=== PATIENT | male | born 1980 | race Caucasian/White ===

== ENCOUNTER → 2020-07-04 | Outpatient (CLI) | payer BC | END | disposition home or self-care (01) | LOC: LABWHC1 14:34 | PROVIDERS: ATTEND Family Medicine | DX: Z20.828 Contact with and (suspected) exposure to other viral communicable diseases (principal) | CPT/HCPCS: U0003; C9803 ==

== ENCOUNTER 2021-04-28 18:14 | Emergency (ER) | payer BC ==
[2021-04-28 18:23] VITALS: TEMP 98
[2021-04-28 18:24] LABS: Glucose,Whole Blood 113 mg/dL (75-99)
--- NOTE | 2021-04-28 18:41 | ED ---
General Adult HPI - General Chief complaint: Neuro Symptoms/Deficit Stated complaint: Weakness, not feeling right, memory loss Time Seen by Provider: 04/28/21 18:26 Source: patient Mode of arrival: ambulatory Limitations: no limitations - History of Present Illness Initial comments: Dictation was produced using [employer] dictation software. please excuse any grammatical, word or spelling errors. Chief Complaint: 41-year-old male presents emergency department for mental status changes. History of Present Illness: 41-year-old value presents to the emergency department today for neurologic complaint. Today he was playing was finally revealed games with his family friend. Shortly after he started to have an episode of headache. States that headache resolved. Described it as a sharp pain to the bitemporal areas. States that he has been feeling off and emotional. is at bedside states that he showed some signs of short-term memory loss. Patient has any numbness and paresthesias to the arms or legs. He has no other medical complaints. The ROS documented in this emergency department record has been reviewed and confirmed by me. Those systems with pertinent positive or negative responses have been documented in the HPI. All other systems are other negative and/or noncontributory. PHYSICAL EXAM: General Impression: Alert and oriented x3, not in acute distress HEENT: Normocephalic atraumatic, extra-ocular movements intact, pupils equal and reactive to light bilaterally, mucous membranes moist. Cardiovascular: Heart regular rate and rhythm Chest: Able to complete full sentences, no retractions, no tachypnea Abdomen: abdomen soft, non-tender, non-distended, no organomegaly Musculoskeletal: Pulses present and equal in all extremities, no peripheral edema Motor: no focal deficits noted Neurological: CN II-XII grossly intact, no focal motor or sensory deficits noted Skin: Intact with no visualized rashes Psych: Normal affect and mood ED course: 41-year-old male presents with mental status changes. Vital signs upon arrival are within acceptable limits. Patient's well-appearing at bedside. Neurologic exam is completely benign.Computed tomography scan of the brain shows no acute processes. Patient related bedside at 7:25 PM found to be in stable medical condition. Patient has no high-risk features. He is well- appearing at bedside. Patient told to follow up his primary care physician. - Related Data Home Medications Medication Instructions Recorded Confirmed Ibuprofen [Motrin] 600 mg PO DIRECTED PRN 09/28/16 09/28/16 Previous Rx's Medication Instructions Recorded Dicyclomine [Bentyl] 10 mg PO QID #30 capsule 09/28/16 Allergies Allergy/AdvReac Type Severity Reaction Status Date / Time No Known Allergies Allergy Verified 04/28/21 18:23 Review of Systems ROS Statement: Those systems with pertinent positive or pertinent negative responses have been documented in the HPI. ROS Other: All systems not noted in ROS Statement are negative. Past Medical History Past Medical History: Asthma Additional Past Medical History / Comment(s): bronchitis History of Any Multi-Drug Resistant Organisms: None Reported Past Surgical History: No Surgical Hx Reported Past Psychological History: Anxiety Smoking Status: Never smoker Past Alcohol Use History: None Reported Past Drug Use History: None Reported General Exam Limitations: no limitations Course Vital Signs 04/28/21 18:19 Temperature 98.0 F Pulse Rate 89 Respiratory 18 Rate Blood Pressure 165/122 O2 Sat by Pulse 98 Oximetry Medical Decision Making - Lab Data Lab Results 04/28/21 Range/Units 18:22 POC Glucose (mg/dL) 113 H (75-99) mg/dL POC [employer] Dawna Mendiola Disposition Clinical Impression: Mental status alteration Disposition: HOME SELF-CARE Condition: Good Instructions (If sedation given, give patient instructions): Altered Mental Status (ED) Is patient prescribed a controlled substance at d/c from ED?: No Referrals: Bri Seals MD [STAFF PHYSICIAN] - 1-2 days
--- NOTE | 2021-04-28 19:11 | CT ---
EXAMINATION TYPE: CT brain wo con DATE OF EXAM: 04/28/2021 COMPARISON: None HISTORY: Altered mental status. CT DLP: 1166.4 mGycm Automated exposure control for dose reduction was used. Ventricles and sulci appear normal. There is no mass effect nor midline shift. There is no sign of in tracranial hemorrhage. Calvarium is intact. Skull base is intact. There is normal aeration of the mas toid sinuses. IMPRESSION: Normal unenhanced head CT scan.
[2021-04-28 19:56] VITALS: BP 145/98; PULSE 79; RESP 16
== END 2021-04-28 19:43 | disposition home or self-care (01) ==
LOC: EC 18:14
DX: R41.82 Altered mental status, unspecified (principal); J45.909 Unspecified asthma, uncomplicated
CPT/HCPCS: 36415; 70450; 99285

== ENCOUNTER 2021-10-22 23:30 | Emergency (ER) | payer BC ==
--- NOTE | 2021-10-23 00:03 | XR ---
EXAMINATION TYPE: XR chest 2V DATE OF EXAM: 10/22/2021 COMPARISON: 12/12/2013 HISTORY: Chest pain TECHNIQUE: 2 views FINDINGS: Heart and mediastinum are normal. Lungs are clear. Diaphragm is normal. Bony thorax is inta ct. IMPRESSION: Normal chest. No change.
--- NOTE | 2021-10-23 01:49 | ED ---
Recheck HPI - General Chief Complaint: Recheck/Abnormal Lab/Rx Stated Complaint: Left side pain Time Seen by Provider: 10/22/21 23:36 Source: patient, RN notes reviewed Mode of arrival: ambulatory Limitations: no limitations - History of Present Illness Initial Comments: Patient is a 41-year-old male that presents to the emergency department complaining of mild upper respiratory tract symptoms. He notes that he had a coughing fit and which he noted after his left-sided ribs hurt. Patient was otherwise well-appearing in no apparent distress. He notes he came to the emergency room to get evaluated for left-sided rib pain and possible Covid. Patient denied any shortness of breath headache nausea vomiting diarrhea constipation fever fatigue chills. - Related Data Home Medications Medication Instructions Recorded Confirmed Ibuprofen [Motrin] 600 mg PO DIRECTED PRN 09/28/16 09/28/16 Previous Rx's Medication Instructions Recorded Dicyclomine [Bentyl] 10 mg PO QID #30 capsule 09/28/16 Allergies Allergy/AdvReac Type Severity Reaction Status Date / Time No Known Allergies Allergy Verified 10/22/21 23:31 Review of Systems ROS Statement: Those systems with pertinent positive or pertinent negative responses have been documented in the HPI. ROS Other: All systems not noted in ROS Statement are negative. Past Medical History Past Medical History: Asthma Additional Past Medical History / Comment(s): bronchitis History of Any Multi-Drug Resistant Organisms: None Reported Past Surgical History: No Surgical Hx Reported Past Psychological History: Anxiety Smoking Status: Never smoker Past Alcohol Use History: Rare Past Drug Use History: None Reported General Exam Limitations: no limitations General appearance: alert, in no apparent distress, obese (Morbidly) Head exam: Present: atraumatic, normocephalic, normal inspection Eye exam: Present: normal appearance, PERRL, EOMI. Absent: scleral icterus, conjunctival injection, periorbital swelling ENT exam: Present: normal exam, mucous membranes moist Neck exam: Present: normal inspection Respiratory exam: Present: normal lung sounds bilaterally. Absent: respiratory distress, wheezes, rales, rhonchi, stridor Cardiovascular Exam: Present: regular rate, normal rhythm, normal heart sounds. Absent: systolic murmur, diastolic murmur, rubs, gallop, clicks Extremities exam: Present: normal inspection, full ROM, normal capillary refill. Absent: tenderness, pedal edema, joint swelling, calf tenderness Neurological exam: Present: alert, oriented X3 Psychiatric exam: Present: normal affect, normal mood Skin exam: Present: warm, dry, intact, normal color. Absent: rash Course Vital Signs 10/22/21 23:31 Temperature 98.5 F Pulse Rate 102 H Respiratory 20 Rate Blood Pressure 167/112 O2 Sat by Pulse 97 Oximetry Medical Decision Making - Medical Decision Making 1-year-old male with left-sided rib pain after coughing and upper respiratory tract symptoms. Covid test, chest x-ray, EKG ordered. Covid test negative. Chest x-ray shows normal chest no acute process. EKG is within normal limits. Case discussed with Dr. Marroquin, patient discharge home. - Lab Data Lab Results 10/23/21 Range/Units 01:10 Coronavirus (PCR) Not Detected (Not Detectd) - EKG Data -: EKG Interpreted by Me EKG shows normal: sinus rhythm Rate: normal EKG Comments: Ventricular rate 85 bpm, ME interval 146 ms, QRS duration 94 ms, QTC 430 ms, PRT axes 44/35/32. Normal sinus rhythm, possible anterior infarct age undetermined, abnormal ECG. - Radiology Data Radiology results: report reviewed, image reviewed Chest x-ray: Normal chest. No change. Disposition Clinical Impression: Costochondritis Disposition: HOME SELF-CARE Condition: Stable Instructions (If sedation given, give patient instructions): Chest Wall Pain (ED) Additional Instructions: Please return to the Emergency Department if symptoms worsen or any other concerns. Follow-up with primary care 1-2 days. Take Tylenol Motrin alternating of 3 hours for aches pains and fevers. Is patient prescribed a controlled substance at d/c from ED?: No Referrals: None,Stated [Primary Care Provider] - 1-2 days Time of Disposition: 01:49
[2021-10-23 02:26] VITALS: BP 158/103; PULSE 95; RESP 18; TEMP 97.8
== END 2021-10-23 02:19 | disposition home or self-care (01) ==
LOC: EC 23:30
DX: M94.0 Chondrocostal junction syndrome [Tietze] (principal); J45.909 Unspecified asthma, uncomplicated; F41.9 Anxiety disorder, unspecified; Z20.822 Contact with and (suspected) exposure to COVID-19
CPT/HCPCS: 71046; 87635; 93005; 99285

== ENCOUNTER → 2023-03-22 | Outpatient (CLI) | payer BC ==
--- NOTE | 2023-03-22 13:19 | XR ---
EXAMINATION TYPE: XR foot complete RT DATE OF EXAM: 03/22/2023 COMPARISON: NONE HISTORY: M 79.671 TECHNIQUE: Frontal, lateral and oblique images of the right foot are obtained. FINDINGS: There is no acute fracture/dislocation evident. The joint spaces appear within normal tucker its. Small posterior calcaneal enthesophyte. The overlying soft tissue appears unremarkable. Inciden rosa os peroneum. IMPRESSION: 1. There is no acute fracture or dislocation seen. 2. Incidental os peroneum which may represent patient's reported palpable abnormality.
== END | disposition home or self-care (01) ==
LOC: RADXRMAIN 12:52
PROVIDERS: ATTEND Family Medicine
DX: M79.671 Pain in right foot (principal)

== ENCOUNTER 2025-01-05 06:55 | Observation (INO) | payer BC ==
[2025-01-05 07:03] VITALS: TEMP 97.5
[2025-01-05] MEDS: SODIUM CHLORIDE 0.9% 1,000 ML IV STA (07:48)
[2025-01-05 07:51] LABS: Basophils % (A) 1 %; Eosinophils # (A) 0.2 k/uL (0-0.7); Eosinophils % (A) 3 %; HCT 48.4 % (39.0-53.0); HGB 16.3 gm/dL (13.0-17.5); Lymphocytes # (A) 1.7 k/uL (1.0-4.8); Lymphocytes % (A) 22 %; MCHC 33.6 g/dL (31.0-37.0); MCV 95.2 fL (80.0-100.0); Mean Platelet Volume 7.1; Monocytes # (A) 0.5 k/uL (0-1.0); Monocytes % (A) 6 %; Neutrophils # (A) 5.4 k/uL (1.3-7.7); Neutrophils % (A) 68 %; Platelet Count 227 k/uL (150-450); RBC 5.08 m/uL (4.30-5.90); RDW 12.3 % (11.5-15.5); WBC 7.9 k/uL (3.8-10.6)
[2025-01-05 08:07] LABS: ALT 53 U/L (4-49); AST 31 U/L (17-59); African American GFR (CKD) >90 (>60 ml/min/1.73 sqM); Albumin 4.4 g/dL (3.5-5.0); Alkaline Phosphatase 72 U/L (38-126); Anion Gap 9 mmol/L; Blood Urea Nitrogen 15 mg/dL (9-20); Calcium 9.9 mg/dL (8.4-10.2); Carbon Dioxide 27 mmol/L (22-30); Chloride 103 mmol/L (98-107); Glucose 98 mg/dL (74-99); Lipase 82 U/L (23-300); Non-African American GFR(CKD) >90 (>60 ml/min/1.73 sqM); Potassium 4.2 mmol/L (3.5-5.1); Sodium 139 mmol/L (137-145); Total Bilirubin 0.9 mg/dL (0.2-1.3); Total Protein 7.2 g/dL (6.3-8.2)
[2025-01-05 08:10] LABS: INR 0.9 (<1.2); Partial Thromboplastin Time 27.5 sec (22.0-30.0); Prothrombin Time 10.2 sec (10.0-12.5)
--- NOTE | 2025-01-05 08:15 | XR ---
EXAMINATION TYPE: XR chest 2V DATE OF EXAM: 01/05/2025 8:09 AM COMPARISON: 02/13/2022 CLINICAL INDICATION: Male, 44 years old with history of Chest Pain, TECHNIQUE: XR chest 2V view(s) obtained. FINDINGS: The heart size is normal. The pulmonary vasculature is normal. The lungs are clear. IMPRESSION: 1. No acute pulmonary process. [facility], , 01/05/2025 8:13 AM
--- NOTE | 2025-01-05 08:43 | US ---
EXAMINATION TYPE: US gallbladder DATE OF EXAM: 01/05/2025 COMPARISON: NONE CLINICAL INDICATION: Male, 44 years old with history of pain; TECHNIQUE: Grayscale and color Doppler imaging of the right upper quadrant was performed. FINDINGS: EXAM MEASUREMENTS: Liver Length: 14.6 cm Gallbladder Wall: 0.2 cm CBD: 0.4 cm Right Kidney: 7.2 x 3.3 x 4.0 cm STOGY MAKER NOTES: Pancreas: Tail obscured by overlying bowel gas Liver: Heterogenous, ? areas of focal fatty sparring Gallbladder: wnl Evidence for sonographic Corado's sign: No CBD: wnl Right Kidney: Horseshoe kidney, otherwise WNL IMPRESSION: 1. No acute ultrasound abnormality right upper quadrant 2. Note is made of a horseshoe kidney. 3. Liver echotexture is somewhat heterogenous in the areas of focal fatty sparing [facility], , 01/05/2025 8:41 AM
--- NOTE | 2025-01-05 08:49 | ED ---
Chest Pain HPI - General Chief Complaint: Chest Pain Stated Complaint: Chest Pain Time Seen by Provider: 01/05/25 07:00 Source: patient, RN notes reviewed Mode of arrival: ambulatory Limitations: no limitations - History of Present Illness Initial Comments: 44-year-old male presents emergency department complaint of chest pain. Patient states that he has been having some on and off symptoms but worsened and more persistent today states he became diaphoretic. Patient states he feels like something moves up into his chest denies feeling any shortness of breath today. He states he normally has had reflux in the past but this is not reflux. Patient denies any prior cardiac disease no history of hypertension hyperlipidemia. Patient states he is on Wegovy but has been on Wegovy for a while. Patient has not fevers or chills no leg pain leg swelling no history of DVT or PE. - Related Data Home Medications Medication Instructions Recorded Confirmed Fexofenadine/Pseudoephedrine 1 tab PO DAILY PRN 02/13/22 02/13/22 [Faith-D 12 Hour Tablet] Ibuprofen [Motrin Ib] 1,000 mg PO Q8H PRN 02/13/22 02/13/22 Previous Rx's Medication Instructions Recorded Acetaminophen [Tylenol] 500 mg PO Q4-6H PRN #24 tab 02/13/22 Cyclobenzaprine [Flexeril] 10 mg PO TID PRN #20 tab 02/13/22 Naproxen [Naprosyn] 500 mg PO Q12HR #24 tab 02/13/22 Allergies Allergy/AdvReac Type Severity Reaction Status Date / Time No Known Allergies Allergy Verified 01/05/25 07:03 Review of Systems ROS Statement: Those systems with pertinent positive or pertinent negative responses have been documented in the HPI. ROS Other: All systems not noted in ROS Statement are negative. EKG Findings - EKG Comments: EKG Findings:: EKG performed at 7: 10 sinus rhythm with a rate of 67 AK 163 QRS 99 QT/QTc 367/382 noted S1 Q 3, T3 - EKG Results: EKG: interpreted by MIKO Past Medical History Past Medical History: Asthma Additional Past Medical History / Comment(s): bronchitis History of Any Multi-Drug Resistant Organisms: None Reported Past Surgical History: No Surgical Hx Reported Past Psychological History: Anxiety Smoking Status: Never smoker Past Alcohol Use History: Occasional Past Drug Use History: None Reported General Exam Limitations: no limitations General appearance: alert, in no apparent distress Head exam: Present: atraumatic, normocephalic, normal inspection Eye exam: Present: normal appearance, PERRL, EOMI. Absent: scleral icterus, conjunctival injection, periorbital swelling ENT exam: Present: normal exam, normal oropharynx, mucous membranes moist Neck exam: Present: normal inspection, full ROM. Absent: tenderness, meningismus, lymphadenopathy Respiratory exam: Present: normal lung sounds bilaterally. Absent: respiratory distress, wheezes, rales, rhonchi, stridor Cardiovascular Exam: Present: regular rate, normal rhythm, normal heart sounds. Absent: systolic murmur, diastolic murmur, rubs, gallop, clicks GI/Abdominal exam: Present: soft, normal bowel sounds. Absent: distended, tenderness, guarding, rebound, rigid Extremities exam: Absent: pedal edema, calf tenderness Back exam: Absent: CVA tenderness (R), CVA tenderness (L) Neurological exam: Present: alert Course Vital Signs 01/05/25 01/05/25 01/05/25 07:00 07:42 08:45 Temperature 97.5 F L Pulse Rate 78 71 80 Respiratory 18 16 19 Rate Blood Pressure 106/69 121/88 125/80 O2 Sat by Pulse 100 100 99 Oximetry Chest Pain MDM - MDM Was pt. sent in by a medical professional or institution (JINNY Arriaza, [employer], urgent care, hospital, or [facility]...) When possible be specific @ -No Did you speak to anyone other than the patient for history (EMS, parent, family, police, friend...)? What history was obtained from this source @ -No Did you review nursing and triage notes (agree or disagree)? Why? @ -I reviewed and agree with nursing and triage notes Were old charts reviewed (outside hosp., previous admission, EMS record, old EKG, old radiological studies, urgent care reports/EKG's, [facility] records)? Report findings @ -No old charts were reviewed Differential Diagnosis (chest pain, altered mental status, abdominal pain women, abdominal pain men, vaginal bleeding, weakness, fever, dyspnea, syncope, headache, dizziness, GI bleed, back pain, seizure, CVA, palpatations, mental health, musculoskeletal)? @ -Differential Chest Pain: Stable Angina, Unstable Angina, STEMI, NSTEMI Aortic Dissection, Pneumothorax, Musculoskeletal, Esophageal Spasm GERD, Cholecystitis, Pancreatitis, Zoster, this is not meant to be an all-inclusive list. EKG interpreted by me (3pts min.). @ -As above X-rays interpreted by me (1pt min.). @ -Chest x-ray shows no acute cardiopulmonary process CT interpreted by me (1pt min.). @ -None done U/S interpreted by me (1pt. min.). @ -Ultra sound gallbladder negative for acute process no evidence of cholelith iasis, horseshoe kidney noted What testing was considered but not performed or refused? (CT, X-rays, U/S, labs)? Why? @ -None What meds were considered but not given or refused? Why? @ -None Did you discuss the management of the patient with other professionals (professionals i.e. , PA, [employer], lab, RT, psych nurse, psych social worker, refinery process engineer, teacher, pharmaceutical officer, case technician)? Give summary @ -EMH for admission Was smoking cessation discussed for >3mins.? @ -No Was critical care preformed (if so, how long)? @ -No Were there social determinants of health that impacted care today? How? (Homelessness, low income, unemployed, alcoholism, drug addiction, transportation, low edu. Level, literacy, decrease access to med. care, long term, rehab)? @ -No Was there de-escalation of care discussed even if they declined (Discuss DNR or withdrawal of care, Hospice)? DNR status @ -No What co-morbidities impacted this encounter? (DM, HTN, Smoking, COPD, CAD, Cancer, CVA, ARF, Chemo, Hep., AIDS, mental health diagnosis, sleep apnea, morbid obesity)? @ -None Was patient admitted / discharged? Hospital course, mention meds given and route, prescriptions, significant lab abnormalities, going to OR and other pertinent info. @ -Admitted patient presented for chest pain with concerning ACS features. Patient initial troponin EKG not reveal any significant findings. Patient admitted for cardiac rule out Undiagnosed new problem with uncertain prognosis? @ -No Drug Therapy requiring intensive monitoring for toxicity (Heparin, Nitro, Insulin, Cardizem)? @ -No Were any procedures done? @ -No Diagnosis/symptom? @ -Chest pain Acute, or Chronic, or Acute on Chronic? @ -Acute Uncomplicated (without systemic symptoms) or Complicated (systemic symptoms)? @ -Complicated Side effects of treatment? @ -No Exacerbation, Progression, or Severe Exacerbation? @ -No Poses a threat to life or bodily function? How? (Chest pain, [place], [place], pneumonia, PE, COPD, DKA, ARF, appy, cholecystitis, CVA, Diverticulitis, Homicidal, Suicidal, threat to staff... and all critical care pts) @ -Yes possible ACS causing risk of cardiac function Disposition Clinical Impression: Chest pain Disposition: ADMITTED IP TO THIS HOSP Condition: Fair Referrals: Olive Hernandez MD [Primary Care Provider] - 1-2 days Time of Disposition: 09:13
[2025-01-05] MEDS ORDERED: NITROGLYCERIN SL TABS 0.4 MG TAB SUBLINGUAL PRN (09:13)
[2025-01-05] MEDS: ASPIRIN 81 MG PO STA (10:02)
--- NOTE | 2025-01-05 11:34 | CA ---
Transthoracic Echo Report Name: Pa Gurrola Age: 44 Gender: M : 1980 Exam Date: 01/05/2025 10:19 Exam Location: [place] [facility] Ht (in): 69 Wt (lb): 225 Ordering Physician: Nabeel Sparks Attending/Referring Phys: Gerent[employer] Physiotherapist Anisha Phillips RDCS Procedure CPT: Indications: Chest Pain Cardiac Hx: Technical Quality: Fair Contrast 1: Definity Total Dose (mL): 2 Contrast 2: Total Dose (mL): MEASUREMENTS (Male / Female) Normal Values 2D ECHO LV Diastolic Diameter PLAX 4.2 cm 4.2 - 5.9 / 3.9 - 5.3 cm LV Systolic Diameter PLAX 2.9 cm IVS Diastolic Thickness 1.2 cm 0.6 - 1.0 / 0.6 - 0.9 cm LVPW Diastolic Thickness 1.2 cm 0.6 - 1.0 / 0.6 - 0.9 cm LV Relative Wall Thickness 0.6 RV Internal Dim ED PLAX 3.5 cm LA Systolic Diameter LX 3.6 cm 3.0 - 4.0 / 2.7 - 3.8 cm M-MODE Aortic Root Diameter MM 3.4 cm DOPPLER AV Peak Velocity 128.4 cm/s AV Peak Gradient 6.6 mmHg Mitral E Point Velocity 84.6 cm/s Mitral A Point Velocity 51.2 cm/s Mitral E to A Ratio 1.7 MV Deceleration Time 158.6 ms MV E' Velocity 9.1 cm/s Mitral E to MV E' Ratio 9.3 FINDINGS Left Ventricle Left ventricular ejection fraction is estimated at 55-60 %. Left ventricular cavity size normal. Mildly increased septal wall thickness. No obvious regional wall motion abnormalities. Right Ventricle Mild right ventricular dilatation. Unable to estimate the right ventricular systolic pressure. Right Atrium Normal right atrial size. No right atrial thrombus or mass seen. Left Atrium Normal left atrial size. No left atrial thrombus or mass present. Mitral Valve Structurally normal mitral valve. No mitral stenosis, regurgitation or prolapse. Aortic Valve Bicuspid aortic valve. Trace aortic regurgitation. No aortic stenosis. Tricuspid Valve Structurally normal tricuspid valve. No tricuspid stenosis, regurgitation or prolapse. Pulmonic Valve Structurally normal pulmonic valve. No pulmonic regurgitation. Pericardium No pericardial effusion. Aorta Normal size aortic root and proximal ascending aorta. CONCLUSIONS Left ventricular ejection fraction is estimated at 55-60 %. No obvious regional wall motion abnormalities. Bicuspid aortic valve. Mild right ventricular dilatation. Previewed by: Dr Phong Mendoza (Electronically Signed) Final Date: 05 January 2025 11:34
--- NOTE | 2025-01-05 11:35 | P.CRDCN ---
History of Present Illness History of present illness: HISTORY OF PRESENT ILLNESS: This is a 44-year-old male with a past medical history significant for asthma and obesity on Wegovy. Patient does not follow with a agricultural equipment operator. We have been asked to see the patient in consultation for chest pain. Patient examined at the bedside in the emergency room. Patient states for the past month he has been having chest discomfort. He states that it feels like " an air bubble that blocks my airway". He states that he tries to burp and when he is able to burp his chest pain will usually go away. He states that this morning he was driving to work and had that same sensation although he had multiple episodes of it so he became concerned and came to the emergency room. Patient states the pain is not exertionally related. He states yesterday he was breaking up ice and exerting himself without any discomfort. Patient is on Wegovy secondary to obesity. He states that his symptoms of chest pain and feeling like he has to burp do not seem to coincide to when he started Wegovy. He denies any known cardiac history. He states his dad has a pacemaker and his younger brother has diabetes. He is a non-smoker. He denies any drug use including marijuana. He reports rare alcohol use. 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 DIAGNOSTICS: - EKG reveals sinus mechanism with T wave versions in lead III. - Chest xray negative for acute process - Laboratory data: WBC 7.9. Hemoglobin 16.3. Platelet count 227. D-dimer 0.59. Sodium 139. Potassium 4.2. BUN 15. Creatinine 0.98. Magnesium 2.0. Troponin negative x 1. - Current home cardiac medications include none - No previous echocardiogram, stress test, or cardiac catheterization available in EMR for review REVIEW OF SYSTEMS: At the time of my exam: CONSTITUTIONAL: Denies fever or chills. HEENT: Denies blurred vision, vision changes, or eye pain. Denies hemoptysis CARDIOVASCULAR: Denies chest pain. Denies orthopnea. Denies PND. Denies palpitations RESPIRATORY: Denies shortness of breath. GASTROINTESTINAL: Denies abdominal pain. Denies nausea or vomiting. HEMATOLOGIC: Denies bleeding disorders. GENITOURINARY: Denies any blood in urine. SKIN: Denies pruitis. Denies rash. PHYSICAL EXAM: VITAL SIGNS: Reviewed. GENERAL: Well-developed in no acute distress. HEENT: Head is normocephalic. Pupils are equal, round. Sclerae anicteric. Mucous membranes of the mouth are moist. Neck supple. No JVD or thyromegaly LUNGS: Respirations even and unlabored. Lungs essentially clear to auscultation bilaterally. HEART: Regular rate and rhythm. S1 and S2 heard. ABDOMEN: Soft. Nondistended. Nontender. EXTREMITIES: Normal range of motion. No clubbing or cyanosis. Peripheral pulses intact. No lower extremity edema NEUROLOGIC: Awake and alert. Oriented x 3. ASSESSMENT: Chest pain, troponin negative x 1 Obesity: BMI 33.2 History of asthma PLAN: Obtain 2D echo to assess cardiac structure and function Decrease aspirin to 81 mg daily Check lipid panel, hemoglobin A1c, TSH, and BNP Trend troponins. If second troponin is negative, patient will undergo stress echocardiogram today If stress echocardiogram is negative, patient may be discharged home from a [facility] standpoint Further recommendations pending patient course Nurse practitioner note has been reviewed by physician. Signing provider agrees with the documented findings, assessment, and plan of care documented by HAT MARKER as a scribe. Past Medical History Past Medical History: Asthma Additional Past Medical History / Comment(s): bronchitis History of Any Multi-Drug Resistant Organisms: None Reported Past Surgical History: No Surgical Hx Reported Past Psychological History: Anxiety Smoking Status: Never smoker Past Alcohol Use History: Occasional Past Drug Use History: None Reported Medications and Allergies Home Medications Medication Instructions Recorded Confirmed Type Semaglutide [Wegovy] 2.4 mg SQ CASTRO 01/05/25 01/05/25 History Allergies Allergy/AdvReac Type Severity Reaction Status Date / Time No Known Allergies Allergy Verified 01/05/25 10:10 Physical Exam Vitals: Vital Signs Temp Pulse Resp BP Pulse Ox 01/05/25 08:45 80 19 125/80 99 01/05/25 07:42 71 16 121/88 100 01/05/25 07:00 97.5 F L 78 18 106/69 100 Intake and Output 01/04/25 01/05/25 01/05/25 22:59 06:59 14:59 Other: Weight 102.058 kg Results 01/05/25 07:41 01/05/25 07:41 Cardiac Enzymes 01/05/25 01/05/25 Range/Units 07:41 07:41 AST 31 (17-59) U/L Troponin I <0.012 (0.000-0.034) ng/mL Coagulation 01/05/25 Range/Units 07:41 PT 10.2 (10.0-12.5) sec APTT 27.5 (22.0-30.0) sec CBC 01/05/25 Range/Units 07:41 WBC 7.9 (3.8-10.6) k/uL RBC 5.08 (4.30-5.90) m/uL Hgb 16.3 (13.0-17.5) gm/dL Hct 48.4 (39.0-53.0) % Plt Count 227 (150-450) k/uL Comprehensive Metabolic Panel 01/05/25 Range/Units 07:41 Sodium 139 (137-145) mmol/L Potassium 4.2 (3.5-5.1) mmol/L Chloride 103 (98-107) mmol/L Carbon Dioxide 27 (22-30) mmol/L BUN 15 (9-20) mg/dL Creatinine 0.98 (0.66-1.25) mg/dL Glucose 98 (74-99) mg/dL Calcium 9.9 (8.4-10.2) mg/dL AST 31 (17-59) U/L ALT 53 H (4-49) U/L Alkaline Phosphatase 72 (38-126) U/L Total Protein 7.2 (6.3-8.2) g/dL Albumin 4.4 (3.5-5.0) g/dL Current Medications Generic Name Dose Route Start Last Admin Trade Name Freq PRN Reason Stop Dose Admin Aspirin 325 mg 01/06/25 09:00 Aspirin 325 Mg Tab PO DAILY MO Nitroglycerin 0.4 mg 01/05/25 09:13 Nitroglycerin Sl Tabs 0.4 Mg Tab SUBLINGUAL Q5M PRN Chest Pain Intake and Output 01/04/25 01/05/25 01/05/25 22:59 06:59 14:59 Other: Weight 102.058 kg Patient Weight 01/06/25 06:59 Weight 102.058 kg 01/05/25 07:41 01/05/25 07:41
[2025-01-05 12:03] LABS: NT-Pro-B-Type Natriuretic Pept <20 pg/mL
--- NOTE | 2025-01-05 14:36 | CA ---
Stress Echo Report Pa Gurrola Age: 44 Gender: M : 1980 Exam Date: 01/05/2025 13:09 Exam Location: [facility] Ht (in): 69 Wt (lb): 225 Ordering Physician: Dawna Rg Referring Physician: [id number] Warehouse Sorter: ROMEO KIMBROUGH Technologist Procedure CPT: Indication: CP ICD-9 Codes: Rhythm: Patient History: CP, FAMILY HX, HIGH CHOL. Cardiac Medications: SEE CHART,,,,, Medications in past 24 hours: Contrast: Stress Results Protocol: Henry Total dose(mL): Exercise Duration (min:sec): Max ST Depression (mm): Angina Score: 2 Rosales Score: METS: 8.7 Resting HR: 81 Resting BP: 124 / 83 Peak HR: 153 Peak BP: 195 / 70 Max Predicted HR: 175 87 % Max Predicted HR Target HR: 149 Double Product: [id number] Stress Summary: BP Response: Reason for Termination: MAX EXERTION/TARGET HR Cardiac Symptoms: NO SYMPTOMS ECG Analysis Resting ECG: Normal sinus rhythm Stress ECG: No abnormal ST/T wave changes with exercise Arrhythmia: None Echo Analysis Resting Echo: Normal global and regional wall motion at rest. Peak Echo Analysis: Normal global and regional wall motion with stress MEASUREMENTS (Male/Female) Normal Values CONCLUSIONS Fair exercise tolerance, achieving 8.7 METS and 87 % of max predicted heart rate. Non ischemic ECG and Echocardiogram with exercise stress Normal hemodynamic and clinical response to exercise Overall Normal stress test Dr Phong Mendoza (Electronically Signed) Final Date: 05 January 2025 14:35
[2025-01-05 19:47] VITALS: BP 137/88; PULSE 81; RESP 17
--- NOTE | 2025-01-05 21:43 | P.HPIM ---
History of Present Illness Please consider this note as combined H&P and discharge summary This is a pleasant 44 years old male who presents because of chest pain on the left side is been going on for 2 months coming and going. But this time it stayed so he decided to come to emergency room. He rated the pain as 8-9/10 in severity in the middle of the chest nonradiating, states when it comes she feels she cannot breathe usually it lasts for 10 seconds and then goes away but this time it stays. No relieving factor. No precipitating factor. He denies coughing. No specific GI/ symptoms. No headache dizziness weakness numbness. Patient denies smoking alcohol or illicit drugs. He is hemodynamically stable afebrile. Labs unremarkable CBC, BMP, LFT, INR. Troponin is negative. D-dimer is negative EKG showing sinus rhythm at [address]-T changes Chest x-ray is negative for acute process Gallbladder showing no gallbladder disease. Patient was given aspirin 325 mg, roll slicing machine tender evaluated the patient who recommended stress echo which came back negative for reversible ischemia. Per cardiology recommendation patient can be discharged if stress echo is negative. Echocardiogram showing preserved ejection fraction about 50 to 55%. Patient chest pain resolved upon discharge I talked to him over the phone and he confirmed to me he feels better and no other symptoms and he agrees to go home. Patient was cleared for discharge by roll slicing machine tender as above. Problems and management plan were discussed with the patient and he verbalized understanding and acceptance Patient was found stable and can be discharged home in guarded prognosis however he needs follow-up as an outpatient. Patient was instructed to follow up with PCP within one week and patient agrees Patient was instructed to follow-up with roll slicing machine tender Dr. Mendoza in 1 to 2 weeks and he agrees Review of systems CONSTITUTIONAL: No fever, no malaise, no fatigue. HEENT: No recent visual problems or hearing problems. Denied any sore throat. CARDIOVASCULAR: No orthopnea, PND, no palpitations, no syncope. PULMONARY: No shortness of breath, no cough, no hemoptysis. GASTROINTESTINAL: No diarrhea, no nausea, no vomiting, no abdominal pain. Normoactive bowel sounds. NEUROLOGICAL: No headaches, no weakness, no numbness. HEMATOLOGICAL: Denies any bleeding or petechiae. GENITOURINARY: Denies any burning micturition, frequency, or urgency. MUSCULOSKELETAL/RHEUMATOLOGICAL: Denies any joint pain, swelling, or any muscle pain. ENDOCRINE: Denies any polyuria or polydipsia. Physical exam Gen: patient is a AAOx3, no distress CVS: S1-S2, RRR, no murmur Lungs: B/L CTA, no wheezing Abdomen: soft, no distention, no tenderness, positive bowel sounds Extremity: no leg edema or induration Time spent more than 35 minutes Past Medical History Past Medical History: Asthma Additional Past Medical History / Comment(s): bronchitis History of Any Multi-Drug Resistant Organisms: None Reported Past Surgical History: No Surgical Hx Reported Past Psychological History: Anxiety Smoking Status: Never smoker Past Alcohol Use History: Occasional Past Drug Use History: None Reported Medications and Allergies Home Medications Medication Instructions Recorded Confirmed Type Semaglutide [Wegovy] 2.4 mg SQ CASTRO 01/05/25 01/05/25 History Allergies Allergy/AdvReac Type Severity Reaction Status Date / Time No Known Allergies Allergy Verified 01/05/25 10:10 Physical Exam Vitals: Vital Signs Temp Pulse Resp BP Pulse Ox 01/05/25 19:46 81 17 137/88 95 01/05/25 16:57 77 19 120/79 98 01/05/25 13:59 102 H 17 121/92 97 01/05/25 11:32 76 17 120/81 95 01/05/25 10:11 66 14 124/78 99 01/05/25 08:45 80 19 125/80 99 01/05/25 07:42 71 16 121/88 100 01/05/25 07:00 97.5 F L 78 18 106/69 100 Intake and Output 01/05/25 01/05/25 01/05/25 06:59 14:59 22:59 Other: Weight 102.058 kg Results CBC & Chem 7: 01/05/25 07:41 01/05/25 07:41 Labs: Abnormal Lab Results - Last 24 Hours (Table) 01/05/25 Range/Units 07:41 ALT 53 H (4-49) U/L
[2025-01-06] MEDS ORDERED: ASPIRIN 325 MG TAB PO SCH (09:00)
[2025-01-06] MEDS ORDERED: ASPIRIN 81 MG PO SCH (09:00)
== END 2025-01-05 20:00 | disposition home or self-care (01) ==
LOC: EC 06:55 → 6NMEDSUR 09:11
PROVIDERS: ADMIT Internal Medicine; ATTEND Internal Medicine
DX: R07.9 Chest pain, unspecified (principal); F41.9 Anxiety disorder, unspecified; E66.9 Obesity, unspecified; Z68.33 Body mass index [BMI] 33.0-33.9, adult
CPT/HCPCS: 99285; 36415; 93005; 93306; 93351; 85379; 83880; 80053; 84443; 83690; 83735; 84484; 85025; 85610; 85730; 83036; 71046; 76705; G0378; Q9957